=== PATIENT | male | born 1995 | race Caucasian/White ===

== ENCOUNTER 2019-05-31 10:15 | Emergency (ER) | payer BC, OTHER ==
[~2019-05-31] VITALS: Ht 177 cm; Wt 91.9 kg
--- NOTE | 2019-05-31 10:33 | ED Abdominal Pain ---
General Chief Complaint: Abdominal/GI Problems Stated Complaint: R SIDE PAIN Exam Limitations: No Limitations History of Present Illness Date Seen by Provider: May 31, 2019 Time Seen by Provider: 10:31 Initial Comments 23-year-old male presents with a sharp stabbing pain in his right lower abdomen/periumbilical area. Pain does not radiate. Pain sometimes worsens with movement. Pain is sporadic. He does not have any nausea vomiting flank pain fevers chills or urinary symptoms. Patient denies any other systemic complaints. Allergies and Home Medications Allergies Coded Allergies: Tramadol (Unverified Adverse Reaction, N/V, 01/13/10) Home Medications No Active Prescriptions or Reported Meds Patient Home Medication List Home Medication List Reviewed: Yes Review of Systems Review of Systems Constitutional: No chills, No fever Respiratory: Denies Cough, Denies Shortness of Air Cardiovascular: No Symptoms Reported; Denies Chest Pain Gastrointestinal: Abdominal Pain; Denies Diarrhea, Denies Nausea, Denies Vomiting Genitourinary: No Symptoms Reported Musculoskeletal: no symptoms reported; No back pain Skin: no symptoms reported Past [id number] Hx Past Med/Social Hx: Reviewed Nursing Past Med/Soc Hx Patient Social History Recent Foreign Travel: No Contact w/Someone Who Travel: No Physical Exam Vital Signs Vital Signs - First Documented 05/31/19 10:20 Temp 37.0 Pulse 85 Resp 16 B/P (MAP) 135/77 (96) Pulse Ox 100 O2 Delivery Room Air Capillary Refill : Height/Weight/BMI Height: '" Weight: lbs. oz. kg; BMI Method:Stated General Appearance: WD/WN, no apparent distress Respiratory: chest non-tender, lungs clear, normal breath sounds Cardiovascular: normal peripheral pulses, regular rate, rhythm Gastrointestinal: soft, tenderness (mild tenderness in the right lateral/periumbilical quadrants) Extremities: non-tender Neurologic/Psychiatric: alert, normal mood/affect, oriented x 3 Skin: normal color, warm/dry Progress/Results/Core Measures Results/Orders Lab Results Laboratory Tests Test 05/31/19 10:34 05/31/19 10:45 Range/Units White Blood Count 8.9 4.3-11.0 10^3/uL Red Blood Count 4.61 4.35-5.85 10^6/uL Hemoglobin 14.4 13.3-17.7 G/DL Hematocrit 41 40-54 % Mean Corpuscular Volume 89 80-99 FL Mean Corpuscular Hemoglobin 31 25-34 PG Mean Corpuscular Hemoglobin Concent 35 32-36 G/DL Red Cell Distribution Width 12.4 10.0-14.5 % Platelet Count 234 130-400 10^3/uL Mean Platelet Volume 9.3 7.4-10.4 FL Neutrophils (%) (Auto) 65 42-75 % Lymphocytes (%) (Auto) 22 12-44 % Monocytes (%) (Auto) 12 0-12 % Eosinophils (%) (Auto) 1 0-10 % Basophils (%) (Auto) 0 0-10 % Neutrophils # (Auto) 5.7 1.8-7.8 X 10^3 Lymphocytes # (Auto) 2.0 1.0-4.0 X 10^3 Monocytes # (Auto) 1.0 0.0-1.0 X 10^3 Eosinophils # (Auto) 0.1 0.0-0.3 10^3/uL Basophils # (Auto) 0.0 0.0-0.1 10^3/uL Sodium Level 141 135-145 MMOL/L Potassium Level 4.0 3.6-5.0 MMOL/L Chloride Level 105 98-107 MMOL/L Carbon Dioxide Level 30 21-32 MMOL/L Anion Gap 6 5-14 MMOL/L Blood Urea Nitrogen 17 7-18 MG/DL Creatinine 0.91 0.60-1.30 MG/DL Estimat Glomerular Filtration Rate > 60 BUN/Creatinine Ratio 19 Glucose Level 83 70-105 MG/DL Calcium Level 9.6 8.5-10.1 MG/DL Corrected Calcium 8.5-10.1 MG/DL Total Bilirubin 0.4 0.1-1.0 MG/DL Aspartate Amino Transf (AST/SGOT) 16 5-34 U/L Alanine Aminotransferase (ALT/SGPT) 10 0-55 U/L Alkaline Phosphatase 88 40-136 U/L C-Reactive Protein High Sensitivity 0.20 0.00-0.50 MG/DL Total Protein 7.8 6.4-8.2 GM/DL Albumin 4.8 H 3.2-4.5 GM/DL Urine Color YELLOW Urine Clarity CLEAR Urine pH 7.5 5-9 Urine Specific [place] 1.025 H 1.016-1.022 Urine Protein NEGATIVE NEGATIVE Urine Glucose (UA) NEGATIVE NEGATIVE Urine Ketones NEGATIVE NEGATIVE Urine Nitrite NEGATIVE NEGATIVE Urine Bilirubin NEGATIVE NEGATIVE Urine Urobilinogen 0.2 < = 1.0 MG/DL Urine Leukocyte Esterase NEGATIVE NEGATIVE Urine RBC (Auto) NEGATIVE NEGATIVE Urine RBC NONE /HPF Urine WBC NONE /HPF Urine Crystals NONE /LPF Urine Bacteria NEGATIVE /HPF Urine Casts NONE /LPF Urine Mucus SMALL H /LPF Urine Culture Indicated NO My Orders Orders - MAO,SANDY L DO Cbc With Automated Diff (05/31/19 10:30) Comprehensive Metabolic Panel (05/31/19 10:30) Hs C Reactive Protein (05/31/19 10:30) Ua Culture If Indicated (05/31/19 10:30) Abdomen/Kub 1[place] (05/31/19 10:30) Vital Signs/I&O 05/31/19 10:20 Temp 37.0 Pulse 85 Resp 16 B/P (MAP) 135/77 (96) Pulse Ox 100 O2 Delivery Room Air Progress Progress Note : Time: 12:11 Progress Note Patient with negative CRP, WBC, urinalysis and x-ray. Patient With no acute findings on labs. Patient's lab and exam are not indicative of an appendicitis. I reviewed findings with patient. I did discuss with patient that early appendicitis does not show lab changes or CT changes and that if symptoms become more consistently in the right lower quadrant patient continue to worsen when he has a any other concerns, he should follow-up for a recheck. Patient is discharged home in stable condition Departure Impression Primary Impression: Abdominal pain Qualified Codes: R10.31 - Right lower quadrant pain Disposition: 01 HOME, SELF-CARE Condition: Stable Departure-Patient Inst. Referrals: YANELY ROBB DO (PCP/Family) Primary Care Physician Patient Instructions: Acute Abdomen (Belly Pain), Adult (DC), Gas and Bloating Add. Discharge Instructions: Emergency department focuses on treating and ruling out life-threatening diseases. Whenever possible, a diagnosis is given. However, most patients are given an impression based on their history, physical exam, and workup during your brief time in the ER. Information about probable diagnosis and other educational material has been provided. Please take the time to read and understand this information. It is very important that you follow up with a physician as discussed during the visit today. Failure to adhere to your follow-up instructions may lead to severe disability, injury, or so please make sure to keep your appointments or o btain one as requested. Please keep in mind the emergency department is not designed to your primary care or "family doctor" and nonurgent issues are best evaluated by an outpatient physician All discharge instructions reviewed with patient and/or family. Voiced understanding. Scripts No Active Prescriptions or Reported Meds SANDY MAO DO May 31, 2019 10:33
[2019-05-31 10:50] LABS: BILIRUBIN,URINE NEGATIVE (NEGATIVE); CLARITY,URINE CLEAR; COLOR,URINE YELLOW; GLUCOSE, URINE (UA) NEGATIVE (NEGATIVE); KETONES,URINE NEGATIVE (NEGATIVE); LEUKOCYTE ESTERASE ,URINE NEGATIVE (NEGATIVE); NITRITE,URINE NEGATIVE (NEGATIVE); PH,URINE 7.5 (5-9); PROTEIN,URINE NEGATIVE (NEGATIVE)
[2019-05-31 10:51] LABS: BASOPHILS % (AUTO) 0 % (0-10); EOSINOPHILS # (AUTO) 0.1 10^3/uL (0.0-0.3); EOSINOPHILS % (AUTO) 1 % (0-10); HEMATOCRIT 41 % (40-54); HEMOGLOBIN 14.4 G/DL (13.3-17.7); LYMPHOCYTES % (AUTO) 22 % (12-44); MEAN CORPUSCULAR HEMOGLOBIN 31 PG (25-34); MEAN CORPUSCULAR HGB CONC 35 G/DL (32-36); MEAN CORPUSCULAR VOLUME 89 FL (80-99); MEAN PLATELET VOLUME 9.3 FL (7.4-10.4); MONOCYTES % (AUTO) 12 % (0-12); NEUTROPHILS # (AUTO) 5.7 X 10^3 (1.8-7.8); NEUTROPHILS % (AUTO) 65 % (42-75); PLATELET COUNT 234 10^3/uL (130-400); RED CELL DISTRIBUTION WIDTH 12.4 % (10.0-14.5); WHITE BLOOD COUNT 8.9 10^3/uL (4.3-11.0)
--- NOTE | 2019-05-31 10:52 | NUR ---
REPORT GIVEN TO HEIDI YE
[2019-05-31 11:00] LABS: BACTERIA,URINE NEGATIVE /HPF
[2019-05-31 11:16] LABS: ALANINE AMINOTRANSFERASE 10 U/L (0-55); ALBUMIN 4.8 GM/DL (3.2-4.5); ALKALINE PHOSPHATASE 88 U/L (40-136); BILIRUBIN,TOTAL 0.4 MG/DL (0.1-1.0); BUN/CREATININE RATIO 19; CALCIUM 9.6 MG/DL (8.5-10.1); CARBON DIOXIDE 30 MMOL/L (21-32); CHLORIDE 105 MMOL/L (98-107); CREATININE SERUM 0.91 MG/DL (0.60-1.30); GFR ESTIMATED > 60; GLUCOSE 83 MG/DL (70-105); SODIUM 141 MMOL/L (135-145); TOTAL PROTEIN 7.8 GM/DL (6.4-8.2)
--- NOTE | 2019-05-31 11:49 | Diagnostic Imaging Report ---
Indication: Right-sided abdominal pain KUB 11:34 AM Bowel gas pattern is normal. There are no pathologic masses or calcifications. Osseous structures appear normal. IMPRESSION: Unremarkable abdomen Dictated by: Dictated on workstation # [id number]
[2019-05-31 12:18] VITALS: BP 122/64
--- OUTSIDE RECORDS SUMMARY | 2019-06-05 06:27 | XMS REPORT | CCD ---
Author Author Cliff Waldron D.O. 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 Name Role Phone Yanely Waldron D.O., PP Unavailable CCM Unavailable Summary Purpose Interface Exchange Insurance Providers Payer name Policy type / Coverage type Covered democrat ID Effective Begin Date Effective End Date [facility] Medicaid [id number] 2012 Unknown Family History Family History data not found Social History No Social History data Allergies, Adverse Reactions, Alerts Substance Reaction Codes Entered Date Inactivated Date Status * NO KNOWN DRUG DAISY RGIES Unknown 08/29/2009 No Inactive Date Active Past Medical History Illness Codes Condition Status Onset Date Resolved Date ALLERGIC RHINITIS ICD-9: 477.9 Active 11/22/2014 Unknown INFECTIOUS MONONUCLE OSIS ICD-9: 075 Active 2012 Unknown LYMPHADENOPATHY ICD-9: 785.6 Active 11/21/2012 Unknown TONSILLITIS, ACUTE ICD- 9: 463 Active 11/21/2012 Unknown COUGH ICD-9: 786.2 Active 08/29/2012 Unknow n Left anterior knee pain ICD-9: 719.46 Active 08/29/2012 Unknown SINUSITIS, ACUTE ICD-9: 461.9 Active 08/29/2012 Unknown Verrucae vulgaris ICD-9: 078.10 Active 11/07/2009 Unknown ROUTINE CHILD HEALTH EXAM ICD-9: V20.2 Active 05/2009 Unknown Problems Condition Codes Effectiv e Dates Condition Status ALLERGIC RHINITIS ICD-9: 477.9 11/22/2014 Active INFECTIOUS MONONUCLE OSIS ICD-9: 075 12/05/2012 Ac tive LYMPHADENOPATHY ICD-9: 785.6 11/21/2012 Active TONSILLITIS, ACUTE ICD- 9: 463 11/21/2012 Active COUGH ICD-9: 786.2 08/29/2012 Active Left anterior knee pain ICD-9: 719.46 08/29/2012 Active SINUSITIS, ACUTE ICD-9: 461.9 08/29/2012 Active Verrucae vulgaris ICD-9: 078.10 11/07/2009 Active ROUTINE CHILD HEALTH EXAM ICD-9: V20.2 08/29/2009 Active Medications Medication Codes Instruc tions Start Date Stop Date Sta tus Fill Instructions azithromycin 500 mg tablet RxNorm: 0960419 1 Tablet(s) PO QD an tibiotic 08/29/2012 09/03/2012 In active Medication Administered No Medication Administered data Immunizations No Immunization data Assessments Condition Codes Effectiv e Dates ALLERGIC RHINITIS ICD-9: 477.9 11/23/2014 INFECTIOUS MONONUCLEOSIS ICD-9: 075 12/27/2012 LYMPHADENOPATHY ICD-9: 785.6 12/27/2012 TONSILLITIS, ACUTE ICD-9: 463 11/21/2012 JOINT PAIN-L/LEG ICD-9: 719.46 09/12/2012 ROUTINE CHILD HEALTH EXAM ICD-9: V20.2 09/12/2012 SINUSITIS, ACUTE ICD-9: 461.9 08/29/2012 COUGH ICD-9: 786.2 08/29 Verruca ICD-9: 078.10 Reason For Visit Reason For Visit Effective Dates Notes fatigue 11/23/2014 follow up 12/27/2012 3wk fwup--needs release to return to sports follow up 12/05/2012 Mon o headache 11/21/2012 mild well man exam (12-17 years) 09/12/2012 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----OU 20/15, OD 20/20, OS 20/30 Results Observation Observation Code Item Item Code Result Date COMPREHENSIVE METABOLIC 48362 AST 57 U/L 11/21/2012 COMPREHENSIVE METABOLIC 48748 ALT 54 IU/L 11/21/2012 COMPREHENSIVE METABOLIC 33324 BUN 13 MG/DL 11/21/2012 COMPREHENSIVE METABOLIC 30071 ALBUMIN 4.5 GM/DL 11/21/2012 COMPREHENSIVE METABOLIC 56250 CHLORIDE 97 MMOL/L 11/21/2012 COMPREHENSIVE METABOLIC 71094 BILI TOT 0.9 MG/DL 11/21/2012 COMPREHENSIVE METABOLIC 03946 ALK PHOS 115 U/L 11/21/2012 COMPREHENSIVE METABOLIC 14774 SODIUM 133 MMOL/L 11/21/2012 COMPREHENSIVE METABOLIC 02265 CREATININE 1.09 MG/DL 11/21/2012 COMPREHENSIVE METABOLIC 77021 CALCIUM 9.6 MG/DL 11/21/2012 COMPREHENSIVE METABOLIC 77124 POTASSIUM 4.0 MMOL/L 11/21/2012 COMPREHENSIVE METABOLIC 98366 PROT TOT 7.9 GM/DL 11/21/2012 COMPREHENSIVE METABOLIC 88011 Glucose 92 MG/DL 11/21/2012 COMPREHENSIVE METABOLIC 76330 BICARB 30 MMOL/L 11/21/2012 COMPREHENSIVE METABOLIC 59067 ANION GAP 6 MEQ/L 11/21/2012 MONOSPOT TEST (MONO TEST) 06106 MONO TEST POSITIVE 11/21/2012 COMPLETE BLOOD COUNT [id number] WBC 10.1 10e9/L 11/21/2012 COMPLETE BLOOD COUNT [id number] RBC 4.49 10e12/L 3 COMPLETE BLOOD COUNT 0095098 HGB 14.4 g/dL 11/21/2012 COMPLETE BLOOD COUNT 5396157 HCT DET 40.0 % 11/21/2012 COMPLETE BLOOD COUNT 3537164 MCV 90.0 fL 11/21/2012 COMPLETE BLOOD COUNT 7106764 MCH 32.0 pg 11/21/2012 COMPLETE BLOOD COUNT 8672161 MCHC 36.0 g/dL 11/21/2012 COMPLETE BLOOD COUNT 1056515 PLT 126 10e9/L 11/21/2012 COMPLETE BLOOD COUNT 9307577 MPV 10.5 fL 11/21/2012 COMPLETE BLOOD COUNT 3512835 ED % SEE DIFF % 11/21/2012 COMPLETE BLOOD COUNT 4475492 LY % SEE DIFF % 11/21/2012 COMPLETE BLOOD COUNT 4044487 MON % SEE DIFF % 11/21/2012 COMPLETE BLOOD COUNT 8763155 EOS % SEE DIFF % 11/21/2012 COMPLETE BLOOD COUNT 7068825 BASO % SEE DIFF % 11/21/2012 COMPLETE BLOOD COUNT 8867933 RDW 12.6 % 11/21/2012 COMPLETE BLOOD COUNT 5357040 ABS ED SEE DIFF 10e9/L 2012 COMPLETE BLOOD COUNT 9043143 ABS LYMPH SEE DIFF 10e9/L 2012 COMPLETE BLOOD COUNT 2483530 ABS MONO SEE DIFF 10e9/L 2012 COMPLETE BLOOD COUNT 3591400 ABS EOS SEE DIFF 11e9/L 2012 COMPLETE BLOOD COUNT 9734054 ABS BASO SEE DIFF 10e9/L 2012 DF [id number] POLY 20 % 11/21/2012 DF [id number] BAND 5 % 11/21/2012 DF [id number] LYMP 33 % 11/21/2012 DF [id number] MONO 9 % 11/21/2012 DF [id number] EOS 0 % 11/21/2012 DF [id number] BASO 0 % 11/21/2012 DF [id number] A LY 33 % 11/21/2012 DF [id number] RBC MOR NL 11/21/2012 Review of Systems System Result Effective Dates Ears/Nose/Throat/Neck sore throat 11/23/2014 Ears/Nose/Throat/Neck headache 11/23/2014 Ears/Nose/Throat/Neck sinus congestion 11/23/2014 Constitutional No fever 11/23/2014 Constitutional fatigue 0 11/23/2014 Respiratory No cough Gastrointestinal No abdominal pain 12/27/2012 Ears/Nose/Throat/Neck No headache 12/27/2012 Ears/Nose/Throat/Neck No sore throat 12/27/2012 Hematologic/Lymphatic No lymph node enlargement/mass 12/27/2012 Constitutional No fever 12/27/2012 Constitutional fatigue 1 Hematologic/Lymphatic lymph node enl argement/mass 12/05/2012 Constitutional fatigue 0 12/05/2012 Constitutional No fever 12/05/2012 Ears/Nose/Throat/Neck tonsillitis 12/05/2012 Ears/Nose/Throat/Neck sore throat 12/05/2012 Ears/Nose/Throat/Neck No sinus congestion 12/05/2012 Constitutional fatigue 0 11/21/2012 Constitutional fever Constitutional malaise 0 11/21/2012 Ears/Nose/Throat/Neck sore throat 11/21/2012 Ears/Nose/Throat/Neck tonsillitis 11/21/2012 Gastrointestinal abdominal pain 11/21/2012 Gastrointestinal diarrhea 11/21/2012 Neurologic headache 10/28 Neurologic weakness 10/28 Constitutional No night sweats 09/12/2012 Constitutional No fatigue 09/12/2012 Constitutional No fever 09/12/2012 Constitutional No insomnia 09/12/2012 Constitutional No weight loss 09/12/2012 Ears/Nose/Throat/Neck No hearing loss 09/12/2012 Ears/Nose/Throat/Neck No nasal discharge 09/12/2012 Ears/Nose/Throat/Neck No sinus congestion 09/12/2012 Ears/Nose/Throat/Neck No sore throat 09/12/2012 Cardiovascular No arrhythmia 09/12/2012 Cardiovascular No chest pain/pressure 09/12/2012 Cardiovascular No edema 09/12/2012 Cardiovascular No exercise intolerance 09/12/2012 Cardiovascular No orthopnea 09/12/2012 Cardiovascular No palpitations 09/12/2012 Respiratory No asthma Respiratory No cough Respiratory No dyspnea 0 09/12/2012 Respiratory No pleuritic pain 09/12/2012 Respiratory No productive sputum 09/12/2012 Respiratory No wheezing 09/12/2012 Gastrointestinal No hemorrhoids 09/12/2012 Gastrointestinal No hepatitis 09/12/2012 Gastrointestinal No abdominal pain 09/12/2012 Gastrointestinal No constipation 09/12/2012 Gastrointestinal No diarrhea 09/12/2012 Gastrointestinal No gastroesophageal reflu x 09/12/2012 Gastrointestinal No melena 09/12/2012 Gastrointestinal No nausea 09/12/2012 Gastrointestinal No vomiting 09/12/2012 Genitourinary/Nephrology No dysuria 09/12/2012 Genitourinary/Nephrology No nocturia 09/12/2012 Genitourinary/Nephrology No urinary incontinence 09/12/2012 Musculoskeletal No muscle weakness 09/12/2012 Musculoskeletal No myalgias 09/12/2012 Musculoskeletal No stiffness 09/12/2012 Musculoskeletal No swelling 09/12/2012 Dermatologic No rash Dermatologic No scar Neurologic No dizziness 09/12/2012 Neurologic No headache 0 09/12/2012 Neurologic No neck pain 09/12/2012 Neurologic No syncope Psychiatric No anxiety 0 09/12/2012 Psychiatric No depression 09/12/2012 Endocrine No goiter 08/27 Endocrine No hyperglycemia 09/12/2012 Endocrine No hypoglycemia 09/12/2012 Hematologic/Lymphatic No abnormal ec chymoses 09/12/2012 Hematologic/Lymphatic No petechiae 09/12/2012 Hematologic/Lymphatic No abnormal bl eeding and bruising 09/12/2012 Hematologic/Lymphatic No anemia 09/12/2012 Hematologic/Lymphatic No lymph node enlargement/mass 09/12/2012 Constitutional fever 05/2012 Respiratory cough 2012 Ears/Nose/Throat/Neck nasal discharge 08/29/2012 Ears/Nose/Throat/Neck No otalgia 08/29/2012 Ears/Nose/Throat/Neck sinus congestion 08/29/2012 Ears/Nose/Throat/Neck sore throat 08/29/2012 Dermatologic No rash 05/2012 Dermatologic No sores Musculoskeletal joint complaint 08/29/2012 Constitutional No fever 11/09/2011 Constitutional No recent illness 11/09/2011 Constitutional No weight gain/obesity 11/09/2011 Constitutional No weight loss 11/09/2011 Eyes No eye trauma 11/08 Ears/Nose/Throat/Neck No cerumen 11/09/2011 Ears/Nose/Throat/Neck No nasal discharge 11/09/2011 Ears/Nose/Throat/Neck No sinus congestion 11/09/2011 Ears/Nose/Throat/Neck No sinusitis 11/09/2011 Ears/Nose/Throat/Neck No sore throat 11/09/2011 Cardiovascular No hypertension 11/09/2011 Cardiovascular No syncope 11/09/2011 Cardiovascular No chest pain/pressure 11/09/2011 Cardiovascular No cardiac murmur 11/09/2011 Respiratory No cough Respiratory No cigarette smoking 11/09/2011 Respiratory No asthma Gastrointestinal No abdominal pain 11/09/2011 Gastrointestinal No diarrhea 11/09/2011 Gastrointestinal No vomiting 11/09/2011 Genitourinary/Nephrology No hernia 11/09/2011 Musculoskeletal No bone fracture 11/09/2011 Musculoskeletal No low back pain 11/09/2011 Musculoskeletal No shoulder pain 11/09/2011 Musculoskeletal No neck pain 11/09/2011 Dermatologic No rash Dermatologic No sores Dermatologic No mole change 11/09/2011 Neurologic No alteration of consciousness 11/09/2011 Neurologic No seizure Psychiatric No alcohol abuse 11/09/2011 Psychiatric No drug abuse 11/09/2011 Psychiatric No depression 11/09/2011 Psychiatric No stress Endocrine No diabetes mellitus type 2 11/09/2011 Endocrine No diabetes mellitus type 1 11/09/2011 Endocrine No hypoglycemia 11/09/2011 Allergy/Immunology No anaphylactoid reaction 11/09/2011 Allergy/Immunology No angioedema 11/09/2011 Allergy/Immunology No food allergy 11/09/2011 Constitutional No fever 09/02/2010 Ears/Nose/Throat/Neck No otalgia 09/02/2010 Ears/Nose/Throat/Neck No nasal discharge 09/02/2010 Ears/Nose/Throat/Neck No sore throat 09/02/2010 Cardiovascular No cardiac murmur 09/02/2010 Cardiovascular No hypertension 09/02/2010 Cardiovascular No syncope 09/02/2010 Respiratory No cigarette smoking 09/02/2010 Respiratory No cough 09/2010 Respiratory No asthma Gastrointestinal No diarrhea 09/02/2010 Gastrointestinal No constipation 09/02/2010 Gastrointestinal No vomiting 09/02/2010 Musculoskeletal No bone pain 09/02/2010 Musculoskeletal No bone fracture 09/02/2010 Musculoskeletal No low back pain 09/02/2010 Musculoskeletal No shoulder pain 09/02/2010 Dermatologic No rash 09/2010 Dermatologic No sores Constitutional No fever 06/19/2010 Constitutional No recent illness 06/19/2010 Respiratory No cough Cardiovascular No cardiac murmur 06/19/2010 Cardiovascular No syncope 06/19/2010 Dermatologic No rash Dermatologic No sores Dermatologic verruca Dermatologic verruca 02/2010 Constitutional No night sweats 08/29/2009 Constitutional No fatigue 08/29/2009 Constitutional No fever 08/29/2009 Constitutional No insomnia 08/29/2009 Constitutional No weight loss 08/29/2009 Cardiovascular No arrhythmia 08/29/2009 Cardiovascular No chest pain/pressure 08/29/2009 Cardiovascular No edema 08/29/2009 Cardiovascular No exercise intolerance 08/29/2009 Cardiovascular No orthopnea 08/29/2009 Cardiovascular No palpitations 08/29/2009 Respiratory No asthma Respiratory No pleuritic pain 08/29/2009 Respiratory No productive sputum 08/29/2009 Respiratory No cough 05/2009 Respiratory No dyspnea 0 08/29/2009 Respiratory No wheezing 08/29/2009 Physical Exam Exam Name System Name It em Name Status Result Effective Dates Notes Full Exam - General Constitutional general appearance Overall: well nourished 11/23/2014 None Full Exam - General Constitutional general appearance Overall: well developed 11/23/2014 None Full Exam - General Constitutional general appearance Overall: in no acute distress 11/23/2014 None Full Exam - General Ears/Nose/Throat otoscopic exam Left tympanic membrane: air- fluid level 11/23/2014 None Full Exam - General Ears/Nose/Throat otoscopic exam Right tympanic membrane: air- fluid level 11/23/2014 None Full Exam - General Ears/Nose/Throat internal nose Turbinates: erythema 11/23/2014 None Full Exam - General Ears/Nose/Throat oral cavity/pharynx/larynx Oropharynx: erythema 11/23/2014 None Full Exam - General Respiratory auscultation Overall: breath sounds clear bilater ally 11/23/2014 None Full Exam - General Cardiovascular auscultation of heart Overall: normal heart sounds 11/23/2014 None Full Exam - General Cardiovascular auscultation of heart Overall: regular rate 11/23/2014 None Full Exam - General Cardiovascular auscultation of heart Overall: no murmurs 11/23/2014 None Full Exam - General Psychiatric mood and affect Overall: normal mood and affect 11/23/2014 None Full Exam - General Lymphatic neck nodes Overall: anterior cervical chain josefina ign 11/23/2014 None Full Exam - General Lymphatic neck nodes Overall: posterior cervical chain be nign 11/23/2014 None Full Exam - General Constitutional general appearance Overall: well nourished 12/27/2012 None Full Exam - General Constitutional general appearance Overall: well developed 12/27/2012 None Full Exam - General Constitutional general appearance Overall: in no acute distress 12/27/2012 None Full Exam - General Ears/Nose/Throat external ear Overall: normal appearance 12/27/2012 None Full Exam - General Ears/Nose/Throat oral cavity/pharynx/larynx Left tonsil: enlarged 12/27/2012 None Full Exam - General Ears/Nose/Throat oral cavity/pharynx/larynx Right tonsil: enlarged 12/27/2012 None Full Exam - General Lymphatic neck nodes Overall: anterior cervical chain josefina ign 12/27/2012 None Full Exam - General Lymphatic neck nodes Overall: posterior cervical chain be nign 12/27/2012 None Full Exam - General Abdomen abdominal exam Overall: soft 12/27/2012 None Full Exam - General Abdomen abdominal exam Overall: no tenderness 12/27/2012 None Full Exam - General Abdomen abdominal exam Overall: no masses 12/27/2012 None Full Exam - General Cardiovascular auscultation of heart Overall: regular rate 12/27/2012 None Full Exam - General Cardiovascular auscultation of heart Overall: normal heart sounds 12/27/2012 None Full Exam - General Respiratory percussion Overall: benign percussion 12/27/2012 None Full Exam - General Neck thyroid Overall: normal size 03/2012 None Full Exam - General Neck thyroid Overall: nontender 12/27 None Full Exam - General Psychiatric orientation/consciousness Overall: oriented to person, place and time 12/27/2012 None Full Exam - General Constitutional general appearance Overall: well nourished 12/05/2012 None Full Exam - General Constitutional general appearance Overall: well developed 12/05/2012 None Full Exam - General Constitutional general appearance Overall: in no acute distress 12/05/2012 None Full Exam - General Neck thyroid Overall: normal size 11/2012 None Full Exam - General Neck thyroid Palpation: tender 2012 None Full Exam - General Lymphatic neck nodes Right posterior cervical chain: numb er of palpable nodes: 2 12/05/2012 None Full Exam - General Lymphatic neck nodes Right posterior cervical chain: non- tender 12/05/2012 None Full Exam - General Lymphatic neck nodes Right posterior cervical chain: firm 12/05/2012 None Full Exam - General Abdomen abdominal exam Left upper quadrant: tender to palpa tion 12/05/2012 None Full Exam - General Lymphatic neck nodes Left posterior cervical chain: a nor mal exam 12/05/2012 None Full Exam - General Respiratory percussion Overall: benign percussion 12/05/2012 None Full Exam - General Cardiovascular auscultation of heart Overall: regular rate 12/05/2012 None Full Exam - General Cardiovascular auscultation of heart Overall: normal heart sounds 12/05/2012 None Full Exam - General Psychiatric orientation/consciousness Overall: oriented to person, place and time 12/05/2012 None Full Exam - General Constitutional general appearance Overall: well nourished 11/21/2012 None Full Exam - General Constitutional general appearance Overall: well developed 11/21/2012 None Full Exam - General Ears/Nose/Throat otoscopic exam Right tympanic membrane: a normal exam 11/21/2012 None Full Exam - General Ears/Nose/Throat otoscopic exam Right external auditory canal: a normal exam 11/21/2012 None Full Exam - General Ears/Nose/Throat otoscopic exam Right external auditory canal: nontender 11/21/2012 Non e Full Exam - General Ears/Nose/Throat otoscopic exam Left external auditory canal: a normal exam 11/21/2012 None Full Exam - General Ears/Nose/Throat otoscopic exam Left external auditory canal: nontender 11/21/2012 Non e Full Exam - General Ears/Nose/Throat otoscopic exam Overall: tympanic membranes clear 11/21/2012 None Full Exam - General Ears/Nose/Throat otoscopic exam Overall: external auditory canals clear 11/21/2012 None Full Exam - General Ears/Nose/Throat otoscopic exam Left tympanic membrane: a normal exam 11/21/2012 None Full Exam - General Ears/Nose/Throat oral cavity/pharynx/larynx Left submandibular gland: a normal exam 11/21/2012 None Full Exam - General Ears/Nose/Throat oral cavity/pharynx/larynx Left submandibular gland: soft 11/21/2012 None Full Exam - General Ears/Nose/Throat oral cavity/pharynx/larynx Left submandibular gland: nontender 11/21/2012 Non e Full Exam - General Ears/Nose/Throat oral cavity/pharynx/larynx Larynx: a normal exam 11/21/2012 None Full Exam - General Ears/Nose/Throat oral cavity/pharynx/larynx Soft palate: a normal exam 11/21/2012 None Full Exam - General Ears/Nose/Throat oral cavity/pharynx/larynx Hard palate: a normal exam 11/21/2012 None Full Exam - General Ears/Nose/Throat oral cavity/pharynx/larynx Overall: larynx benign 11/21/2012 None Full Exam - General Ears/Nose/Throat oral cavity/pharynx/larynx Overall: floor of mouth benign 11/21/2012 None Full Exam - General Ears/Nose/Throat oral cavity/pharynx/larynx Overall: retromolar trigone benign 11/21/2012 None Full Exam - General Ears/Nose/Throat oral cavity/pharynx/larynx Overall: hard palate benign 11/21/2012 None Full Exam - General Ears/Nose/Throat oral cavity/pharynx/larynx Overall: tonsils benign 11/21/2012 None Full Exam - General Ears/Nose/Throat oral cavity/pharynx/larynx Overall: salivary glands benign 11/21/2012 None Full Exam - General Ears/Nose/Throat oral cavity/pharynx/larynx Overall: no masses 11/21/2012 None Full Exam - General Ears/Nose/Throat oral cavity/pharynx/larynx Overall: mobile tongue benign 11/21/2012 None Full Exam - General Ears/Nose/Throat oral cavity/pharynx/larynx Overall: hypopharynx benign 11/21/2012 None Full Exam - General Ears/Nose/Throat oral cavity/pharynx/larynx Overall: oropharyngeal mucosa clear 11/21/2012 None Full Exam - General Ears/Nose/Throat oral cavity/pharynx/larynx Overall: oral mucosa clear 11/21/2012 None Full Exam - General Ears/Nose/Throat oral cavity/pharynx/larynx Overall: soft palate benign 11/21/2012 None Full Exam - General Ears/Nose/Throat oral cavity/pharynx/larynx Overall: base of tongue benign 11/21/2012 None Full Exam - General Ears/Nose/Throat oral cavity/pharynx/larynx Retromolar trigone: a normal exam 11/21/2012 None Full Exam - General Ears/Nose/Throat oral cavity/pharynx/larynx Hypopharynx: a normal exam 11/21/2012 None Full Exam - General Ears/Nose/Throat oral cavity/pharynx/larynx Mobile tongue: soft 11/21/2012 None Full Exam - General Ears/Nose/Throat oral cavity/pharynx/larynx Mobile tongue: nontender 11/21/2012 None Full Exam - General Ears/Nose/Throat oral cavity/pharynx/larynx Mobile tongue: a normal exam 11/21/2012 None Full Exam - General Ears/Nose/Throat oral cavity/pharynx/larynx Oropharynx: a normal exam 11/21/2012 None Full Exam - General Ears/Nose/Throat oral cavity/pharynx/larynx Posterior Pharynx: a normal exam 11/21/2012 None Full Exam - General Ears/Nose/Throat oral cavity/pharynx/larynx Floor of mouth: soft 11/21/2012 None Full Exam - General Ears/Nose/Throat oral cavity/pharynx/larynx Floor of mouth: a normal exam 11/21/2012 None Full Exam - General Ears/Nose/Throat oral cavity/pharynx/larynx Floor of mouth: nontender 11/21/2012 None Full Exam - General Ears/Nose/Throat oral cavity/pharynx/larynx Base of tongue: a normal exam 11/21/2012 None Full Exam - General Ears/Nose/Throat oral cavity/pharynx/larynx Base of tongue: soft 11/21/2012 None Full Exam - General Ears/Nose/Throat oral cavity/pharynx/larynx Right parotid: soft 11/21/2012 None Full Exam - General Ears/Nose/Throat oral cavity/pharynx/larynx Right parotid: nontender 11/21/2012 None Full Exam - General Ears/Nose/Throat oral cavity/pharynx/larynx Right parotid: a normal exam 11/21/2012 None Full Exam - General Ears/Nose/Throat oral cavity/pharynx/larynx Right submandibular gland: a normal exam 11/21/2012 None Full Exam - General Ears/Nose/Throat oral cavity/pharynx/larynx Right submandibular gland: nontender 11/21/2012 Non e Full Exam - General Ears/Nose/Throat oral cavity/pharynx/larynx Right submandibular gland: soft 11/21/2012 None Full Exam - General Ears/Nose/Throat oral cavity/pharynx/larynx Oral mucosa: a normal exam 11/21/2012 None Full Exam - General Ears/Nose/Throat oral cavity/pharynx/larynx Mass: nontender 11/21/2012 None Full Exam - General Ears/Nose/Throat oral cavity/pharynx/larynx Mass: soft 11/21/2012 None Full Exam - General Ears/Nose/Throat oral cavity/pharynx/larynx Left parotid: a normal exam 11/21/2012 None Full Exam - General Ears/Nose/Throat oral cavity/pharynx/larynx Left parotid: soft 11/21/2012 None Full Exam - General Ears/Nose/Throat oral cavity/pharynx/larynx Left parotid: nontender 11/21/2012 None Full Exam - General Ears/Nose/Throat oral cavity/pharynx/larynx Left tonsil: 3+ size 11/21/2012 None Full Exam - General Ears/Nose/Throat oral cavity/pharynx/larynx Left tonsil: enlarged 11/21/2012 None Full Exam - General Ears/Nose/Throat oral cavity/pharynx/larynx Left tonsil: exudate 11/21/2012 None Full Exam - General Ears/Nose/Throat oral cavity/pharynx/larynx Left tonsil: erythematous 11/21/2012 None Full Exam - General Ears/Nose/Throat oral cavity/pharynx/larynx Right tonsil: 1+ size 11/21/2012 None Full Exam - General Ears/Nose/Throat oral cavity/pharynx/larynx Right tonsil: enlarged 11/21/2012 None Full Exam - General Ears/Nose/Throat oral cavity/pharynx/larynx Right tonsil: erythematous 11/21/2012 None Full Exam - General Neck thyroid Palpation: tender 2012 None Full Exam - General Musculoskeletal head and neck Overall: head atraumatic 11/21/2012 None Full Exam - General Lymphatic neck nodes Right posterior cervical chain: firm 11/21/2012 None Full Exam - General Lymphatic neck nodes Right posterior cervical chain: numb er of palpable nodes: 2 11/21/2012 None Full Exam - General Lymphatic neck nodes Left posterior cervical chain: tende r 11/21/2012 None Full Exam - General Lymphatic neck nodes Right posterior cervical chain: tend er 11/21/2012 None Full Exam - General Lymphatic neck nodes Left anterior cervical chain: tender 11/21/2012 None Full Exam - General Lymphatic neck nodes Left anterior cervical chain: size ( cm): 2 11/21/2012 None Full Exam - General Lymphatic neck nodes Right anterior cervical chain: size (cm): 3 11/21/2012 None Full Exam - General Abdomen abdominal exam Overall: soft 11/21/2012 None Full Exam - General Abdomen abdominal exam Left upper quadrant: tender to palpa tion 11/21/2012 None Full Exam - General Cardiovascular auscultation of heart Overall: regular rate 11/21/2012 None Full Exam - General Cardiovascular auscultation of heart Overall: normal heart sounds 11/21/2012 None Full Exam - General Cardiovascular auscultation of heart Overall: no murmurs 11/21/2012 None Full Exam - General Respiratory percussion Overall: benign percussion 11/21/2012 None Full Exam - General Psychiatric orientation/consciousness Overall: oriented to person, place and time 11/21/2012 None Full Exam - General Constitutional general appearance Overall: well nourished 09/12/2012 None Full Exam - General Constitutional general appearance Overall: well developed 09/12/2012 None Full Exam - General Constitutional general appearance Overall: in no acute distress 09/12/2012 None Full Exam - General Neurologic mental status Overall: alert 3 None Full Exam - General Neurologic mental status Overall: oriented 09/12/2012 None Full Exam - General Psychiatric mood and affect Overall: normal mood and affect 09/12/2012 None Full Exam - General Respiratory auscultation Overall: breath sounds clear bilater ally 09/12/2012 None Full Exam - General Cardiovascular auscultation of heart Overall: regular rate 09/12/2012 None Full Exam - General Cardiovascular auscultation of heart Overall: normal heart sounds 09/12/2012 None Full Exam - General Cardiovascular auscultation of heart Overall: no murmurs 09/12/2012 None Full Exam - General Neck inspection of neck Overall: normal size 09/12/2012 None Full Exam - General Neck inspection of neck Overall: no masses 09/12/2012 None Full Exam - General Ears/Nose/Throat otoscopic exam Overall: external auditory canals clear 09/12/2012 None Full Exam - General Ears/Nose/Throat otoscopic exam Overall: tympanic membranes clear 09/12/2012 None Full Exam - General Ears/Nose/Throat internal nose Overall: bilateral nasal cavities clear 09/12/2012 None Full Exam - General Ears/Nose/Throat oral cavity/pharynx/larynx Overall: oral mucosa clear 09/12/2012 None Full Exam - General Integument inspection of skin Overall: no rash, lesions 09/12/2012 None Full Exam - General Musculoskeletal gait and station Overall: normal gait 09/12/2012 None Full Exam - General Musculoskeletal gait and station Overall: normal station 09/12/2012 None Full Exam - General Musculoskeletal spine, ribs and pelvis Spine: a normal exam 09/12/2012 None Full Exam - General Abdomen abdominal exam Overall: no masses 09/12/2012 None Full Exam - General Abdomen abdominal exam Overall: no tenderness 09/12/2012 None Full Exam - General Abdomen abdominal exam Overall: normal bowel sounds 09/12/2012 None Full Exam - General Abdomen abdominal exam Overall: soft 09/12/2012 None Full Exam - General Eyes pupils and irises Overall: pupils equal, round, reacti ve to light and accomodation 09/12/2012 None Full Exam - General Eyes ophthalmoscopic exam Red Reflex Present 09/12/2012 None Full Exam - General Cardiovascular extremities Overall: no clubbing 09/12/2012 None Full Exam - General Cardiovascular extremities Overall: No edema 09/12/2012 None Full Exam - General Cardiovascular extremities Overall: No cyanosis 09/12/2012 None Full Exam - General Genitourinary penis Overall: no lesions, no discharge 09/12/2012 None Full Exam - General Genitourinary penis Overall: normal circumcised penis 09/12/2012 None Full Exam - General Genitourinary penis Overall: appropriate Yeyo stage of penis 09/12/2012 None Full Exam - General Genitourinary scrotum/testes Overall: no masses 09/12/2012 None Full Exam - General Genitourinary scrotum/testes Overall: bilateral descended testes 09/12/2012 None Full Exam - General Genitourinary scrotum/testes Overall: appropriate Yeyo stage of testicles 09/12/2012 None Full Exam - General Constitutional general appearance Overall: well nourished 08/29/2012 None Full Exam - General Constitutional general appearance Overall: well developed 08/29/2012 None Full Exam - General Constitutional general appearance Overall: in no acute distress 08/29/2012 None Full Exam - General Eyes conjunctiva/eyelids Overall: conjunctiva clear 08/29/2012 None Full Exam - General Eyes conjunctiva/eyelids Overall: cornea clear 08/29/2012 None Full Exam - General Eyes conjunctiva/eyelids Overall: eyelids normal 08/29/2012 None Full Exam - General Eyes pupils and irises Overall: pupils equal, round, reacti ve to light and accomodation 08/29/2012 None Full Exam - General Ears/Nose/Throat otoscopic exam Overall: external auditory canals clear 08/29/2012 None Full Exam - General Ears/Nose/Throat otoscopic exam Overall: tympanic membranes clear 08/29/2012 None Full Exam - General Ears/Nose/Throat lips/teeth/gingiva Overall: benign lips 08/29/2012 None Full Exam - General Ears/Nose/Throat lips/teeth/gingiva Overall: normal dentition 08/29/2012 None Full Exam - General Ears/Nose/Throat lips/teeth/gingiva Overall: benign gingiva 08/29/2012 None Full Exam - General Ears/Nose/Throat oral cavity/pharynx/larynx Oropharynx: a normal exam 08/29/2012 None Full Exam - General Respiratory auscultation Overall: breath sounds clear bilater ally 08/29/2012 coughs with deep inspirat ion Full Exam - General Respiratory respiratory effort/rhythm Overall: no retractions 08/29/2012 None Full Exam - General Respiratory respiratory effort/rhythm Overall: normal rate 08/29/2012 None Full Exam - General Cardiovascular auscultation of heart Overall: regular rate 08/29/2012 None Full Exam - General Cardiovascular auscultation of heart Overall: normal heart sounds 08/29/2012 None Full Exam - General Lymphatic neck nodes Overall: anterior cervical chain josefina ign 08/29/2012 None Full Exam - General Lymphatic neck nodes Overall: posterior cervical chain be nign 08/29/2012 None Full Exam - General Musculoskeletal right lower extremity Inspection - right thigh: normal appearance 08/29/2012 None Full Exam - General Musculoskeletal right lower extremity Palpation - right thigh: normal on palpation 08/29/2012 None Full Exam - General Musculoskeletal right lower extremity Muscle Strength/Tone - right thigh: quadriceps: normal bulk 08/29/2012 None Full Exam - General Musculoskeletal right lower extremity Muscle Strength/Tone - right thigh: quadriceps: normal tone 08/29/2012 None Full Exam - General Musculoskeletal right lower extremity Inspection - right knee: a normal exam 08/29/2012 None Full Exam - General Musculoskeletal right lower extremity Palpation - right knee: no effusion 08/29/2012 None Full Exam - General Musculoskeletal right lower extremity Palpation - right knee: a normal exam 08/29/2012 None Full Exam - General Musculoskeletal right lower extremity ROM - right knee: pain with extension 08/29/2012 None Full Exam - General Musculoskeletal right lower extremity Stability - right knee: a normal exam 08/29/2012 None Full Exam - General Musculoskeletal right lower extremity Muscle Strength/Tone - right knee: a normal exam 08/29/2012 None Full Exam - General Musculoskeletal right lower extremity Inspection - right lower leg: normal appearance 08/29/2012 None Full Exam - General Integument inspection of skin Overall: no rash, lesions 08/29/2012 None Full Exam - General Psychiatric orientation/consciousness Overall: oriented to person, place and time 08/29/2012 None Full Exam - General Constitutional general appearance Overall: well nourished 11/09/2011 None Full Exam - General Constitutional general appearance Overall: well developed 11/09/2011 None Full Exam - General Constitutional general appearance Overall: in no acute distress 11/09/2011 None Full Exam - General Eyes conjunctiva/eyelids Overall: conjunctiva clear 11/09/2011 None Full Exam - General Eyes conjunctiva/eyelids Overall: cornea clear 11/09/2011 None Full Exam - General Eyes conjunctiva/eyelids Overall: eyelids normal 11/09/2011 None Full Exam - General Eyes pupils and irises Overall: pupils equal, round, reacti ve to light and accomodation 11/09/2011 None Full Exam - General Ears/Nose/Throat otoscopic exam Overall: external auditory canals clear 11/09/2011 None Full Exam - General Ears/Nose/Throat otoscopic exam Overall: tympanic membranes clear 11/09/2011 None Full Exam - General Ears/Nose/Throat lips/teeth/gingiva Overall: benign lips 11/09/2011 None Full Exam - General Ears/Nose/Throat lips/teeth/gingiva Overall: normal dentition 11/09/2011 None Full Exam - General Ears/Nose/Throat lips/teeth/gingiva Overall: benign gingiva 11/09/2011 None Full Exam - General Ears/Nose/Throat oral cavity/pharynx/larynx Overall: oropharyngeal mucosa clear 11/09/2011 None Full Exam - General Neck thyroid Overall: normal size None Full Exam - General Neck thyroid Overall: normal consistency 11/09/2011 None Full Exam - General Neck thyroid Overall: nontender 11/08 None Full Exam - General Neck thyroid Overall: no mass lesions 11/09/2011 None Full Exam - General Respiratory auscultation Overall: breath sounds clear bilater ally 11/09/2011 None Full Exam - General Respiratory respiratory effort/rhythm Overall: no retractions 11/09/2011 None Full Exam - General Respiratory respiratory effort/rhythm Overall: normal rate 11/09/2011 None Full Exam - General Cardiovascular auscultation of heart Overall: regular rate 11/09/2011 None Full Exam - General Cardiovascular auscultation of heart Overall: normal heart sounds 11/09/2011 None Full Exam - General Cardiovascular auscultation of heart Overall: no murmurs 11/09/2011 None Full Exam - General Abdomen abdominal exam Overall: no tenderness 11/09/2011 None Full Exam - General Abdomen abdominal exam Overall: soft 11/09/2011 None Full Exam - General Abdomen abdominal exam Overall: no masses 11/09/2011 None Full Exam - General Abdomen abdominal exam Overall: normal bowel sounds 11/09/2011 None Full Exam - General Genitourinary penis Overall: normal circumcised penis 11/09/2011 None Full Exam - General Genitourinary scrotum/testes Overall: bilateral descended testes 11/09/2011 None Full Exam - General Lymphatic neck nodes Overall: anterior cervical chain josefina ign 11/09/2011 None Full Exam - General Lymphatic neck nodes Overall: posterior cervical chain be nign 11/09/2011 None Full Exam - General Lymphatic inguinal nodes Overall: inguinal non-tender, not en larged 11/09/2011 None Full Exam - General Musculoskeletal head and neck Overall: head atraumatic 11/09/2011 None Full Exam - General Musculoskeletal head and neck Overall: cervical spine benign 11/09/2011 None Full Exam - General Musculoskeletal digits and nails Overall: no clubbing 11/09/2011 None Full Exam - General Musculoskeletal digits and nails Overall: digits benign 11/09/2011 None Full Exam - General Musculoskeletal right upper extremity Overall: right shoulder benign 11/09/2011 None Full Exam - General Musculoskeletal right upper extremity Overall: right elbow benign 11/09/2011 None Full Exam - General Musculoskeletal right upper extremity Overall: right wrist benign 11/09/2011 None Full Exam - General Musculoskeletal right upper extremity Overall: full strength in RUE 11/09/2011 None Full Exam - General Musculoskeletal right upper extremity Overall: normal RUE bulk and tone 11/09/2011 None Full Exam - General Musculoskeletal left upper extremity Overall: normal left shoulder 11/09/2011 None Full Exam - General Musculoskeletal left upper extremity Overall: normal left elbow 11/09/2011 None Full Exam - General Musculoskeletal left upper extremity Overall: normal left wrist 11/09/2011 None Full Exam - General Musculoskeletal left upper extremity Overall: full strength in LUE 11/09/2011 None Full Exam - General Musculoskeletal left upper extremity Overall: normal LUE bulk and tone 11/09/2011 None Full Exam - General Musculoskeletal right lower extremity Overall: right ankle benign 11/09/2011 None Full Exam - General Musculoskeletal right lower extremity Overall: right knee benign 11/09/2011 None Full Exam - General Musculoskeletal right lower extremity Overall: right foot benign 11/09/2011 None Full Exam - General Musculoskeletal right lower extremity Overall: full strength in RLE 11/09/2011 None Full Exam - General Musculoskeletal right lower extremity Overall: normal RLE bulk and tone 11/09/2011 None Full Exam - General Musculoskeletal left lower extremity Overall: left knee benign 11/09/2011 None Full Exam - General Musculoskeletal left lower extremity Overall: left ankle benign 11/09/2011 None Full Exam - General Musculoskeletal left lower extremity Overall: left foot benign 11/09/2011 None Full Exam - General Musculoskeletal left lower extremity Overall: full strength in LLE 11/09/2011 None Full Exam - General Musculoskeletal left lower extremity Overall: normal LLE bulk and tone 11/09/2011 None Full Exam - General Musculoskeletal spine, ribs and pelvis Overall: spine benign 11/09/2011 None Full Exam - General Musculoskeletal spine, ribs and pelvis Overall: right hip benign 11/09/2011 None Full Exam - General Musculoskeletal spine, ribs and pelvis Overall: left hip benign 11/09/2011 None Full Exam - General Musculoskeletal gait and station Overall: normal station 11/09/2011 None Full Exam - General Musculoskeletal gait and station Overall: normal gait 11/09/2011 None Full Exam - General Integument inspection of skin Overall: no rash, lesions 11/09/2011 None Full Exam - General Psychiatric orientation/consciousness Overall: oriented to person, place and time 11/09/2011 None Full Exam - General Neurologic cranial nerves Overall: cranial nerves 1-12 intact 11/09/2011 all grossly intact #1 not tested Full Exam - General Neurologic gait Overall: no ataxia, no unsteadiness 11/09/2011 None Full Exam - General Neurologic coordination Overall: no dysdiadochokinesis, no d ysmetria 11/09/2011 None Full Exam - General Neurologic coordination Overall: no tremors 11/09/2011 None Full Exam - General Neurologic mental status Overall: alert 2 None Full Exam - General Neurologic mental status Overall: oriented 11/09/2011 None Full Exam - General Neurologic mental status Overall: normal recall 11/09/2011 None Full Exam - General Neurologic motor Overall: normal bulk, tone 11/09/2011 None Full Exam - General Constitutional general appearance Overall: well nourished 09/02/2010 None Full Exam - General Constitutional general appearance Overall: well developed 09/02/2010 None Full Exam - General Constitutional general appearance Overall: in no acute distress 09/02/2010 None Full Exam - General Eyes conjunctiva/eyelids Overall: conjunctiva clear 09/02/2010 None Full Exam - General Eyes conjunctiva/eyelids Overall: cornea clear 09/02/2010 None Full Exam - General Eyes conjunctiva/eyelids Overall: eyelids normal 09/02/2010 None Full Exam - General Eyes pupils and irises Overall: pupils equal, round, reacti ve to light and accomodation 09/02/2010 None Full Exam - General Ears/Nose/Throat otoscopic exam Overall: external auditory canals clear 09/02/2010 None Full Exam - General Ears/Nose/Throat otoscopic exam Overall: tympanic membranes clear 09/02/2010 None Full Exam - General Ears/Nose/Throat lips/teeth/gingiva Overall: benign lips 09/02/2010 None Full Exam - General Ears/Nose/Throat lips/teeth/gingiva Overall: normal dentition 09/02/2010 wears braces Full Exam - General Ears/Nose/Throat oral cavity/pharynx/larynx Overall: oral mucosa clear 09/02/2010 None Full Exam - General Ears/Nose/Throat oral cavity/pharynx/larynx Overall: tonsils benign 09/02/2010 None Full Exam - General Ears/Nose/Throat oral cavity/pharynx/larynx Overall: oropharyngeal mucosa clear 09/02/2010 None Full Exam - General Respiratory auscultation Overall: breath sounds clear bilater ally 09/02/2010 None Full Exam - General Respiratory respiratory effort/rhythm Overall: no retractions 09/02/2010 None Full Exam - General Respiratory respiratory effort/rhythm Overall: normal rate 09/02/2010 None Full Exam - General Cardiovascular auscultation of heart Overall: regular rate 09/02/2010 None Full Exam - General Cardiovascular auscultation of heart Overall: normal heart sounds 09/02/2010 None Full Exam - General Abdomen abdominal exam Overall: no tenderness 09/02/2010 None Full Exam - General Abdomen abdominal exam Overall: soft 09/02/2010 None Full Exam - General Abdomen abdominal exam Overall: no masses 09/02/2010 None Full Exam - General Abdomen abdominal exam Overall: normal bowel sounds 09/02/2010 None Full Exam - General Lymphatic neck nodes Overall: anterior cervical chain josefina ign 09/02/2010 None Full Exam - General Lymphatic neck nodes Overall: posterior cervical chain be nign 09/02/2010 None Full Exam - General Musculoskeletal head and neck Overall: head atraumatic 09/02/2010 None Full Exam - General Musculoskeletal head and neck Overall: cervical spine benign 09/02/2010 None Full Exam - General Musculoskeletal digits and nails Overall: no clubbing 09/02/2010 None Full Exam - General Musculoskeletal digits and nails Overall: digits benign 09/02/2010 None Full Exam - General Musculoskeletal right upper extremity Overall: right shoulder benign 09/02/2010 None Full Exam - General Musculoskeletal right upper extremity Overall: right elbow benign 09/02/2010 None Full Exam - General Musculoskeletal right upper extremity Overall: right wrist benign 09/02/2010 None Full Exam - General Musculoskeletal right upper extremity Overall: full strength in RUE 09/02/2010 None Full Exam - General Musculoskeletal right upper extremity Overall: normal RUE bulk and tone 09/02/2010 None Full Exam - General Musculoskeletal left upper extremity Overall: normal left shoulder 09/02/2010 None Full Exam - General Musculoskeletal left upper extremity Overall: normal left elbow 09/02/2010 None Full Exam - General Musculoskeletal left upper extremity Overall: normal left wrist 09/02/2010 None Full Exam - General Musculoskeletal left upper extremity Overall: full strength in LUE 09/02/2010 None Full Exam - General Musculoskeletal left upper extremity Overall: normal LUE bulk and tone 09/02/2010 None Full Exam - General Musculoskeletal right lower extremity Overall: right knee benign 09/02/2010 None Full Exam - General Musculoskeletal right lower extremity Overall: right ankle benign 09/02/2010 None Full Exam - General Musculoskeletal right lower extremity Overall: right foot benign 09/02/2010 None Full Exam - General Musculoskeletal right lower extremity Overall: full strength in RLE 09/02/2010 None Full Exam - General Musculoskeletal right lower extremity Overall: normal RLE bulk and tone 09/02/2010 None Full Exam - General Musculoskeletal left lower extremity Overall: left knee benign 09/02/2010 None Full Exam - General Musculoskeletal left lower extremity Overall: left ankle benign 09/02/2010 None Full Exam - General Musculoskeletal left lower extremity Overall: left foot benign 09/02/2010 None Full Exam - General Musculoskeletal left lower extremity Overall: full strength in LLE 09/02/2010 None Full Exam - General Musculoskeletal left lower extremity Overall: normal LLE bulk and tone 09/02/2010 None Full Exam - General Musculoskeletal spine, ribs and pelvis Overall: good posture 09/02/2010 None Full Exam - General Musculoskeletal spine, ribs and pelvis Overall: spine benign 09/02/2010 None Full Exam - General Musculoskeletal spine, ribs and pelvis Overall: right hip benign 09/02/2010 None Full Exam - General Musculoskeletal spine, ribs and pelvis Overall: left hip benign 09/02/2010 None Full Exam - General Musculoskeletal gait and station Overall: normal gait 09/02/2010 None Full Exam - General Musculoskeletal gait and station Overall: normal station 09/02/2010 None Full Exam - General Integument inspection of skin Overall: no rash, lesions 09/02/2010 None Full Exam - General Psychiatric orientation/consciousness Overall: oriented to person, place and time 09/02/2010 None Full Exam - General Constitutional general appearance Overall: well nourished 06/19/2010 None Full Exam - General Constitutional general appearance Overall: well developed 06/19/2010 None Full Exam - General Constitutional general appearance Overall: in no acute distress 06/19/2010 None Full Exam - General Respiratory auscultation Overall: breath sounds clear bilater ally 06/19/2010 None Full Exam - General Respiratory respiratory effort/rhythm Overall: no retractions 06/19/2010 None Full Exam - General Respiratory respiratory effort/rhythm Overall: normal rate 06/19/2010 None Full Exam - General Cardiovascular auscultation of heart Overall: regular rate 06/19/2010 None Full Exam - General Cardiovascular auscultation of heart Overall: normal heart sounds 06/19/2010 None Full Exam - General Constitutional general appearance Overall: in no acute distress 11/07/2009 None Full Exam - General Neurologic mental status Overall: alert 0 None Full Exam - General Neurologic mental status Overall: oriented 11/07/2009 None Full Exam - General Integument inspection of skin Rash/Lesions: wart 11/07/2009 left 5th digit approx 1cm in size Full Exam - General Constitutional general appearance Overall: well nourished 11/07/2009 None Full Exam - General Constitutional general appearance Overall: well developed 11/07/2009 None Full Exam - General Respiratory auscultation Left upper lung field: a normal exam 08/29/2009 None Full Exam - General Respiratory auscultation Left lower lung field: a normal exam 08/29/2009 None Full Exam - General Respiratory auscultation Right upper lung field: a normal exa m 08/29/2009 None Full Exam - General Respiratory auscultation Right middle lung field: a normal ex am 08/29/2009 None Full Exam - General Respiratory auscultation Right lower lung field: a normal exa m 08/29/2009 None Full Exam - General Cardiovascular auscultation of heart Overall: regular rate 08/29/2009 None Full Exam - General Cardiovascular auscultation of heart Overall: normal heart sounds 08/29/2009 None Full Exam - General Constitutional general appearance Overall: well nourished 08/29/2009 None Full Exam - General Constitutional general appearance Overall: well developed 08/29/2009 None Full Exam - General Constitutional general appearance Overall: in no acute distress 08/29/2009 None Full Exam - General Eyes pupils and irises Overall: pupils equal, round, reacti ve to light and accomodation 08/29/2009 None Full Exam - General Ears/Nose/Throat otoscopic exam Overall: external auditory canals clear 08/29/2009 None Full Exam - General Ears/Nose/Throat otoscopic exam Overall: tympanic membranes clear 08/29/2009 None Full Exam - General Cardiovascular auscultation of heart Overall: no murmurs 08/29/2009 None Full Exam - General Ears/Nose/Throat internal nose Overall: bilateral nasal cavities clear 08/29/2009 None Full Exam - General Ears/Nose/Throat oral cavity/pharynx/larynx Oral mucosa: a normal exam 08/29/2009 None Full Exam - General Ears/Nose/Throat oral cavity/pharynx/larynx Oropharynx: a normal exam 08/29/2009 None Full Exam - General Neck inspection of neck Overall: normal size 08/29/2009 None Full Exam - General Neck inspection of neck Overall: no masses 08/29/2009 None Full Exam - General Respiratory auscultation Overall: breath sounds clear bilater ally 08/29/2009 None Full Exam - General Respiratory auscultation Diffuse: a normal exam 08/29/2009 None Full Exam - General Cardiovascular auscultation of heart Rate: regular rate 08/29/2009 None Full Exam - General Cardiovascular auscultation of heart Rhythm: regular rhythm 08/29/2009 None Full Exam - General Cardiovascular auscultation of heart S1: a normal exam 08/29/2009 None Full Exam - General Cardiovascular auscultation of heart S2: a normal exam 08/29/2009 None Full Exam - General Cardiovascular extremities Overall: no clubbing 08/29/2009 None Full Exam - General Cardiovascular extremities Overall: No edema 08/29/2009 None Full Exam - General Cardiovascular extremities Overall: No cyanosis 08/29/2009 None Full Exam - General Abdomen abdominal exam Overall: no masses 08/29/2009 None Full Exam - General Abdomen abdominal exam Overall: no tenderness 08/29/2009 None Full Exam - General Abdomen abdominal exam Overall: normal bowel sounds 08/29/2009 None Full Exam - General Abdomen abdominal exam Overall: soft 08/29/2009 None Full Exam - General Genitourinary penis Overall: no lesions, no discharge 08/29/2009 None Full Exam - General Genitourinary penis Overall: normal circumcised penis 08/29/2009 None Full Exam - General Genitourinary penis Overall: appropriate Yeyo stage of penis 08/29/2009 None Full Exam - General Genitourinary scrotum/testes Overall: no masses 08/29/2009 None Full Exam - General Genitourinary scrotum/testes Overall: bilateral descended testes 08/29/2009 None Full Exam - General Abdomen hernia exam Overall: no hernias present 08/29/2009 None Full Exam - General Musculoskeletal spine, ribs and pelvis Overall: spine benign 08/29/2009 None Full Exam - General Neurologic deep tendon reflexes Overall: deep tendon reflexes intact 08/29/2009 None Full Exam - General Neurologic mental status Overall: alert 0 None Full Exam - General Neurologic mental status Overall: oriented 08/29/2009 None Full Exam - General Neurologic cranial nerves Overall: cranial nerves 1-12 intact 08/29/2009 None Full Exam - General Psychiatric mood and affect Overall: normal mood and affect 08/29/2009 None Full Exam - General Integument inspection of skin Rash/Lesions: wart 08/29/2009 hand Procedures Procedure Codes Date DESTRUCT PREMALG LES ION (Cryosurgery) CPT-4: 13160 06/19/2010 DESTRUCT PREMALG LES ION (Cryosurgery) CPT-4: 69904 11/07/2009 Vital Signs Date Vital 11/23/2014 Blood Pressure 1: 118/80 Code: 8480-6 BMI: 25.0 Code: 38346-5 Heart Rate 1: 66 bpm Height: 6' Respiratory Rate: 20 bpm Temperature: 36.4 (C ) / 97.6 (F) Weight: 184 lbs 12/27/2012 Blood Pressure 1: 102/70 Code: 8480-6 BMI: 24.7 Code: 86964-5 Heart Rate 1: 60 bpm Height: 5'12" Respiratory Rate: 20 bpm Temperature: 37.0 (C ) / 98.6 (F) Weight: 181 lbs 12/05/2012 Blood Pressure 1: 124/78 Code: 8480-6 Heart Rate 1: 80 bpm Respiratory Rate: 20 bpm Temperature: 37.1 (C) / 98.8 (F) 11/21/2012 Blood Pressure 1: 122/78 Code: 8480-6 Heart Rate 1: 88 bpm Respiratory Rate: 20 bpm Temperature: 36.7 (C) / 98.1 (F) Weight: 184 lbs 09/12/2012 Blood Pressure 1: 122/74 Code: 8480-6 BMI: 25.1 Code: 24734-9 Heart Rate 1: 80 bpm Height: 5'12" Respiratory Rate: 20 bpm Temperature: 36.5 (C ) / 97.7 (F) Weight: 184 lbs 08/29/2012 Blood Pressure 1: 116/70 Code: 8480-6 BMI: 24.9 Code: 15354-5 Heart Rate 1: 80 bpm Height: 5'12" Temperature: 37.2 (C ) / 99.0 (F) Weight: 181 lbs 11/09/2011 Blood Pressure 1: 110/68 Code: 8480-6 BMI: 23.8 Code: 98470-3 Heart Rate 1: 78 bpm Height: 5'12" Temperature: 36.8 (C ) / 98.3 (F) Weight: 173 lbs 09/02/2010 Blood Pressure 1: 112/62 Code: 8480-6 BMI: 21.5 Code: 46215-0 Heart Rate 1: 72 bpm Height: 5'12" Temperature: 36.7 (C ) / 98.0 (F) Weight: 156 lbs 06/19/2010 Andes rature: 36.1 (C) / 97.0 (F) Weight: 154 lbs 11/07/2009 Blood Pressure 1: 112/68 Code: 8480-6 Heart Rate 1: 80 bpm Temperature: 36.8 (C) / 98.2 (F) Weight: 133 lbs 08/29/2009 Blood Pressure 1: 108/70 Code: 8480-6 BMI: 20.5 Code: 65279-5 Heart Rate 1: 84 bpm Height: 5'7" Temperature: 36.9 (C ) / 98.4 (F) Weight: 130 lbs Functional Status No Functional Status data History of Present Illness Symptom Name Status Resu lt Effective Date Notes fatigue Quality acute 11/23/2014 None fatigue Quality intermit tent 11/23/2014 None fatigue Onset of Symptom 2 days ago 11/23/2014 None headache Location diffus jamir 11/23/2014 None headache Quality aching 11/23/2014 None headache Quality pressure 11/23/2014 None headache Quality squeezi ng 11/23/2014 None headache Onset of Symptom 2 days ago 11/23/2014 None otalgia Location on both sides 11/23/2014 None otalgia Quality acute 11/23/2014 None otalgia Quality pressure 11/23/2014 None otalgia Onset of Symptom 2 days ago 11/23/2014 None sore throat Location dif fusely 11/23/2014 None sore throat Quality achi ng 11/23/2014 None sore throat Quality acute 11/23/2014 None sore throat Onset of Symptom 2 days ago 11/23/2014 None fatigue Quality improving 12/27/2012 None lymph node enlargement/mass Quality improving 12/27/2012 None fatigue Quality improving 12/05/2012 None cough Quality dry 11/21/2012 None headache Location diffus jamir 11/21/2012 None headache Onset and Resolution gradual in onset 11/21/2012 States sick since . well man exam (12-17 years) Lifestyle no history of physical abuse 09/12/2012 None well man exam (12-17 years) Lifestyle no history of sexual abuse 09/12/2012 None well man exam (12-17 years) Lifestyle no history of verbal abuse 09/12/2012 None well man exam (12-17 years) Lifestyle regular seatbelt use 09/12/2012 None well man exam (12-17 years) Lifestyle family supportive of relationship 09/12/2012 None well man exam (12-17 years) Lifestyle satisfactory school experience 09/12/2012 None well man exam (12-17 years) Lifestyle normal amount of stress 09/12/2012 None well man exam (12-17 years) Lifestyle satisfactory peer relationships 09/12/2012 None cough Location in the laurie ng 08/29/2012 None cough Quality constant 08/29/2012 None cough Quality hacking 08/29/2012 None cough Onset and Resolution sudden in onset 08/29/2012 None cough Onset of Symptom 1 days ago 08/29/2012 None cough Limitation on Activities moderately limits activities 08/29/2012 None sinus congestion Location on both sides 08/29/2012 None sinus congestion Quality constant 08/29/2012 None sinus congestion Quality fullness 08/29/2012 None sinus congestion Onset and Resolution sudden in onset 08/29/2012 None sinus congestion Onset of Symptom 1 days ago 08/29/2012 None sinus congestion Severity moderate 08/29/2012 None fever Quality intermitte nt 08/29/2012 None fever Onset and Resolution sudden in onset 08/29/2012 None fever Onset of Symptom 1 hours ago 08/29/2012 None knee pain Location on th e left 08/29/2012 None knee pain Quality interm ittent 08/29/2012 states only when he puts stress on it. knee pain Quality tender ness 08/29/2012 None knee pain Quality sharp pain 08/29/2012 None knee pain Onset and Resolution sudden in onset 08/29/2012 None knee pain Onset of Symptom 2 weeks ago 08/29/2012 None knee pain Frequency of Episodes increasing 08/29/2012 None well man exam (12-17 years) Sexual Activit y is not sexually active 11/09/2011 None well man exam (12-17 years) Control none 11/09/2011 None well man exam (12-17 years) Lifestyle no history of physical abuse 11/09/2011 None well man exam (12-17 years) Lifestyle no history of sexual abuse 11/09/2011 None well man exam (12-17 years) Lifestyle no history of verbal abuse 11/09/2011 None well man exam (12-17 years) Lifestyle regular seatbelt use 11/09/2011 None well man exam (12-17 years) Lifestyle family supportive of relationship 11/09/2011 None well man exam (12-17 years) Lifestyle satisfactory school experience 11/09/2011 None well man exam (12-17 years) Lifestyle satisfactory peer relationships 11/09/2011 None well man exam (12-17 years) Lifestyle normal amount of stress 11/09/2011 None well man exam (12-17 years) Nutritio n and Exercise normal weight 11/09/2011 None well man exam (12-17 years) Nutritio n and Exercise regular diet 11/09/2011 None well man exam (12-17 years) Nutritio n and Exercise moderate exercise 11/09/2011 None well man exam (12-17 years) Reproduc tive System Development normal development 11/09/2011 None well man exam (12-17 years) Reproduc tive System Development normal puberty 11/09/2011 None well man exam (12-17 years) Reproduc tive System Development normal genitalia 11/09/2011 None 10-14 year well check Nutrition no concerns of weight 09/02/2010 None 10-14 year well check Sleep has a good bedtime routine 09/02/2010 None 10-14 year well check [employer] participates in regular physical activity 09/02/2010 None 10-14 year well check [employer] participates in after school sports 09/02/2010 None verruca Quality cauliflo wer-like 11/07/2009 None Advance Directives No Advance Directive data Encounters Encounter Performer Loca tion Codes Date OFFICE/OUTPATIENT SIT EST Diagnosis: ALLERGIC RHINITIS[ICD9: 477.9] Yessi WALDRON [employer] CPT-4: 34784 11/23/2014 OFFICE/OUTPATIENT SIT EST Diagnosis: INFECTIOUS MONONUCLEOSIS[ICD9: 075] Diagnosis: LYMPHADENOPATHY[ICD9: 785.6] Yessi WALDRON [employer] CPT-4: 47782 12/27/2012 OFFICE/OUTPATIENT SIT EST Diagnosis: INFECTIOUS MONONUCLEOSIS[ICD9: 075] Yessi [place] S. Hope YANG [employer] CPT-4: 39382 12/05/2012 OFFICE/OUTPATIENT SIT EST Diagnosis: TONSILLITIS, ACUTE[ICD9: 463] Diagnosis: LYMPHADENOPATHY[ICD9: 785.6] Yessi VIZCARRAER [employer] CPT-4: 13520 11/21/2012 ([id number]) PREV VISIT E ST AGE 12-17 Diagnosis: ROUTINE CHILD HEALTH EXAM[ICD9: V20.2] Diagnosis: JOINT PAIN-L/LEG[ICD9: 719.46] Yanely WALDRON [email or web address] [facility] CPT-4: 31370 09/12/2012 OFFICE/OUTPATIENT SIT EST Diagnosis: COUGH[ICD9: 786.2] Diagnosis: SINUSITIS, ACUTE[ICD9: 461.9] Diagnosis: Left anterior knee pain[ICD9: 719.46] Yanely HERNANDEZ [employer] CPT-4: 43244 08/29/2012 ([id number]) PREV VISIT E ST AGE 12-17 Diagnosis: ROUTINE CHILD HEALTH EXAM[ICD9: V20.2] Yanely SCHMIDT [employer] CPT-4: 68699 11/09/2011 ([id number]) PREV VISIT E ST AGE 12-17 Yanely SCHMIDT [employer] CPT-4: 57270 09/02/2010 ([id number]) PREV VISIT, EST, AGE 12-17 Yanely SCHMIDT [employer] [facility] CPT-4: 26261 08/29/2009 Plan of Care Planned Activity Notes C odes Status Date Visit Plan: Increase rest and fluid s Start daily anti- histamine - cetirizine Nasonex nasal spray - 2 sprays each nostril daily Tylenol/Motrin for GIBSON Warm saline gargles Follow-up for worsening symptoms 11/23/2014 Visit Plan: Increase rest and fluid s Start daily anti- histamine - cetirizine Nasonex nasal spray - 2 sprays each nostril daily Tylenol/Motrin for GIBSON Warm saline gargles Follow-up for worsening symptoms 11/23/2014 Appointment: Yessi Jeffers WPtel: [address] [place] [address] ACUTE ILLNESS 11/23/2014 Patient Education: Patient Medication Summary Completed 11/23/2014 Appointment: Yessi Jeffers WPtel: [address] [place], [place] [phone] 11/22 called today then no showed cn ACUTE ILLNESS 11/22/2014 Visit Plan: Note given to return to conditioning with jogging this week. Released for full contact and participation next Wednesday01/02/2013 12/27/2012 Appointment: Yessi Jeffers WPtel: [address] [place], [place] [phone] FOLLOW UP 12/27/2012 Patient Education: Patient Medication Summary Completed 12/27/2012 Visit Plan: No contact sports for 6 weeks from date of diagnosis. Diagnosed 11/21/2012 Return in 3 weeks for follow-up evaluation and possible release to play sports on January 02. 12/05/2012 Appointment: Yessi Jeffers WPtel: [address] [place], [place] [phone] FOLLOW UP 12/05/2012 Patient Education: Patient Medication Summary Completed 12/05/2012 Visit Plan: CBC, CMP [place]. Stat To [facility] to have labs drawn. No school today. Will contact Mom with results and follow-up. 11/21/2012 Visit Plan: CBC, CMP [place]. Stat To [facility] to have labs drawn. No school today. Will contact Mom with results and follow-up. Call Ceftin 250 mg PO bid x 10 days. 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 RICE and Ibuprofen for knee. Discussed supportive device. Azithromycin. Ibuprofen or Motrin for fever. 08/29/2012 Appointment: Shante Lemos WPtel: [address] [place], [place] [phone] ACUTE ILLNESS 08/29/2012 Patient Education: Patient Medication Summary Completed 08/29/2012 Visit Plan: Discussed Gardasil and Meningitis shot when they go for flu shot in November at [facility]. No current health concerns. 11/09/2011 Appointment: Shante Lemos WPtel: [address] [place], [place] [address] SPORTS PHYSICAL 11/09/2011 Patient Education: Patient Medication Summary Completed 11/09/2011 Visit Plan: some difficulty answeri [facility] questions regarding family history. Discussed allergy to bee stings via telephone with mother and she states no anaphylaxis. Advised pt. to seek [place] [facility] provider and take Benadryl in the event that he receives a bee sting. Advised to obtain a copy of his shot record and take it with him to [facility]. 09/02/2010 Appointment: Shante Lemos WPtel: [address] [place], [place] [phone] PHYSICAL 09/02/2010 Patient Education: Patient Medication Summary Completed 09/02/2010 Visit Plan: cryo to left hand. Pt. tolerated well. Discussed wound care and that pt. may need to return for cautery of warts if they continue to grow. Discussed that due to large size surgical removal may become necessary. 06/19/2010 Appointment: Shante Lemos WPtel: [address] [place], [place] [phone] OFFICE SURGERY 06/19/2010 Patient Education: Patient Medication Summary Completed 06/19/2010 Visit Plan: Cryotherapy x3 to wart after top shaved with 15 blade scalpel 11/07/2009 Appointment: Yanely Waldron WPtel: [address] [place], [place] [phone] OFFICE SURGERY 11/07/2009 Patient Education: Patient Medication Summary Completed 11/07/2009 Visit Plan: Sports form filled out- -cleared for all activities Pt will return at later date for wart removal 08/29/2009 Appointment: Yanely Waldron WPtel: [address] [place], [place] [phone] PHYSICAL 08/29/2009 Patient Education: Patient Medication Summary Completed 08/29/2009 Instructions Comment . some difficulty an swering health questions regarding family history. Discussed allergy to bee stings via telephone with mother and she states no anaphylaxis. Advised pt. to seek [place] [facility] provider and take Benadryl in the event that he receives a bee sting. Advised to obtain a copy of his shot record and take it with him to [facility]. . Cryotherapy x3 to wart after top shaved with 15 blade scalpel . Note given to jorge l harrison to conditioning with jogging this week. Released for full contact and participation next Wednesday01/02/2013 . No contact sports for 6 weeks from date of diagnosis. Diagnosed 11/21/2012 Return in 3 weeks for follow-up evaluation and possible release to play sports on January 02. . cryo to left hand. Pt. tolerated well. Discussed wound care and that pt. may need to return for cautery of warts if they continue to grow. Discussed that due to large size surgical removal may become necessary. . Increase rest and fluids Start daily anti-histamine - cetirizine Nasonex nasal spray - 2 sprays each nostril daily Tylenol/Motrin for GIBSON Warm saline gargles Follow-up for worsening symptoms . Increase rest and fluids Start daily anti-histamine - cetirizine Nasonex nasal spray - 2 sprays each nostril daily Tylenol/Motrin for GIBSON Warm saline gargles Follow-up for worsening symptoms . Discussed that vciki l notify if symptoms worsen or fever does not resolve. RICE and Ibuprofen for knee. Discussed supportive device. Azithromycin. Ibuprofen or Motrin for fever. . 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 Sports form filled out--cleared for all activities Pt will return at later date for wart removal . CBC, CMP [place]. Sta t To [facility] to have labs drawn. No school today. Will contact Mom with results and follow-up. . CBC, CMP [place]. Sta t To [facility] to have labs drawn. No school today. Will contact Mom with results and follow-up. Call Ceftin 250 mg PO bid x 10 days. . Discussed Gardasil and Meningitis shot when they go for flu shot in November at [facility]. No current health concerns.
== END 2019-05-31 12:18 | disposition home or self-care (01) ==
LOC: EDUNIT# 10:15 → ER 10:16
DX: R10.33 Periumbilical pain (principal); Z88.5 Allergy status to narcotic agent
CPT/HCPCS: 36415; 74018; 80053; 81000; 85025; 86141